=== PATIENT | female | born 2000 | race Caucasian/White ===

== ENCOUNTER 2021-12-11 15:10 | Outpatient (CLI) | payer BC, SELFPAY ==
[2021-12-11 18:33] LABS: Hepatitis B Surface Antigen* Negative (Negative)
[2021-12-11 18:41] LABS: HIV 1/2/P24 Combo Screen* Negative (Negative)
[2021-12-11 18:50] LABS: Hepatitis C Virus Antibody* Negative (Negative)
[2021-12-14 14:33] LABS: Varicella-Zoster Virus Ab, IgG 421.7 IV
[2021-12-14 14:35] LABS: Rubella Antibody IgG 16.2 IU/mL
[2021-12-14 20:38] LABS: Rapid Plasma Reagin (RPR) Non Reactive (Non Reactive)
== END 2021-12-11 15:11 | disposition home or self-care (01) ==
PROVIDERS: Visit Provider Advanced Practice Midwife
DX: Z34.91 Encounter for supervision of normal pregnancy, unspecified, first trimester (principal); O20.9 Hemorrhage in early pregnancy, unspecified; Z3A.08 8 weeks gestation of pregnancy
CPT/HCPCS: 76817; 86592; 86703; 86762; 86787; 86803; 86850; 86900; 86901; 87086; 87340

== ENCOUNTER 2022-02-22 12:20 | Outpatient (CLI) | payer BC, SELFPAY ==
--- NOTE | 2022-02-22 12:15 | CRLHL7_ITS ---
For Patients: As a result of the Century Cures Act, medical imaging exams and procedure reports are released immediately into your electronic medical record. You may view this report before your referring provider. If you have questions, please contact your health care provider. INDICATION: Evaluate anatomy. COMPARISON: 12/11/2021 TECHNIQUE: Real time mariano scale imaging of the fetus was performed as well as color Doppler analysis of the umbilical vessels. FINDINGS: Sonographic imaging demonstrates a single living intrauterine gestation. Fetus demonstrates a regular cardiac rate of 152 beats per minute. Fetus has a longitudinal vertex position. The placenta lies fundal posterior without evidence of placenta previa. The edge of the placenta is located 4.8 cm from the internal cervical os. Amniotic fluid volume appears normal. Single deepest vertical pocket: 3.1 cm. The cervix is closed and measures 3.8 cm in length. The composite ultrasound gestational age is calculated at 19 weeks 0 days with an estimated sonographic due date of 07/19/2022. The estimated weight is 267 grams which lies at the 61st %. The following biometric measurements were obtained: Biparietal diameter: 4.3 cm/19 weeks 0 days 63rd% Head circumference: 16.5 cm/19 weeks 1 day 66th% Abdominal circumference: 13.6 cm/19 weeks 0 days 57th% Femur length: 2.9 cm/18 weeks 6 days 49th% The HC/AC ratio measures: 1.21 range (1.09-0.26) On anatomic survey, there is a normal appearance of the cerebral ventricles, cavum septi pellucidi, cisterna magna and cerebellum. The nose, lips, and facial profile appear normal. The cervical, thoracic and lumbar spine are well visualized and appear normal. There is a normal four-chamber heart view and the left and right ventricular outflow tracts appear normal. The diaphragm and stomach appear normal. The bladder appears normal. Renal echotexture is hyperechoic, see image 17/60. There is a normal three-vessel cord and cord insertion site. The four extremities appear normal. IMPRESSION: Concordance of clinical and sonographic dating. Bilateral echogenic kidneys. This may be indicative of renal parenchymal disease, however, in some cases it could represent a normal variant. The remainder of the anatomic survey is normal. Level 2 ultrasound recommended. Dictated by Rafita Harris MD @ 02/22/2022 2:30:41 PM (Electronically Signed)
== END 2022-02-22 12:21 | disposition home or self-care (01) ==
LOC: US 12:22
PROVIDERS: Visit Provider Advanced Practice Midwife
DX: Z34.82 Encounter for supervision of other normal pregnancy, second trimester (principal); Z3A.18 18 weeks gestation of pregnancy
CPT/HCPCS: 76805